=== PATIENT | female | born 1955 | race Caucasian/White ===

== ENCOUNTER → 2024-06-07 09:05 | Outpatient (CLI) | payer MEDICARE, SELFPAY ==
[2024-06-07 10:36] LABS: Influenza A - CEPHEID Flu A POSITIVE (NEGATIVE); Influenza B - CEPHEID Flu B NEGATIVE (NEGATIVE); Respiratory Syncytial Virus Negative (Negative)
[2024-06-07 10:37] LABS: COVID-19 CEPHEID 4-PLEX PCR Negative (Negative)
== END ==
PROVIDERS: Visit Provider Registered Nurse
DX: R50.9 Fever, unspecified (principal)
CPT/HCPCS: 0241U